=== PATIENT | female | born 1995 | race Caucasian/White ===

== ENCOUNTER 2023-11-07 14:00 | Emergency (ER) | payer OTHER, BC ==
[~2023-11-07] VITALS: Ht 162.6 cm; Wt 705.3 kg
[2023-11-07 14:29] VITALS: BP_SYST 110; PULSE 88; RESP 16; TEMP 97.9; O2SAT 98
[2023-11-07] MEDS: IBUPROFEN 800 MG TABLET PO ONE (15:58)
[2023-11-07] MEDS ORDERED: IBUP-1969 PO (16:26)
[2023-11-07] MEDS ORDERED: SOM350 PO (16:26)
[2023-11-07 16:41] VITALS: BP_SYST 110; PULSE 88; RESP 16; TEMP 97.9; O2SAT 98
== END 2023-11-07 16:40 | disposition home or self-care (01) ==
LOC: SED 14:00
DX: S16.1XXA Strain of muscle, fascia and tendon at neck level, initial encounter (principal); S09.90XA Unspecified injury of head, initial encounter; V89.2XXA Person injured in unspecified motor-vehicle accident, traffic, initial encounter; Y93.89 Activity, other specified; Y92.89 Other specified places as the place of occurrence of the external cause; Y99.8 Other external cause status
CPT/HCPCS: 70450-TC; 72040; 81025; 99284